=== PATIENT | female | born 1950 | race Caucasian/White ===

== ENCOUNTER → 2021-12-03 09:49 | Outpatient (BNVA) | payer MEDICARE, MEDICAID, SELFPAY | PROVIDERS: PCP Nurse Practitioner Family; Visit Provider Psychiatry & Neurology Neurology | DX: F03.90 Unspecified dementia, unspecified severity, without behavioral disturbance, psychotic disturbance, mood disturbance, and anxiety (principal); F43.20 Adjustment disorder, unspecified; F32.A Depression, unspecified; F41.9 Anxiety disorder, unspecified | CPT/HCPCS: 99202 ==